=== PATIENT | male | born 1950 | race Caucasian/White ===

== ENCOUNTER 2017-10-03 20:03 | Emergency (ER) | payer MEDICARE ==
[2017-10-03] MEDS ORDERED: ASPIRIN PO ONE (20:21)
[2017-10-03] MEDS ORDERED: CATAPRES PO ONE (20:33)
[2017-10-03] MEDS ORDERED: NACL 0.9% 1000 ML 1,000 ML IV ONE (20:33)
[2017-10-03 21:02] LABS: Basophils % (Auto) 0.7 % (0.0-1.8); Eosinophils # (Auto) 0.6 K/mm3 (0.0-0.4); Eosinophils % (Auto) 10.8 % (0.0-4.3); Lymphocytes # (Auto) 1.9 K/mm3 (1.2-5.4); Lymphocytes % (Auto) 31.9 % (13.4-35.0); Mean Corpuscular HGB Conc 36 % (32-34); Mean Corpuscular Hemoglobin 34 pg (28-32); Mean Corpuscular Volume 94 fl (84-94); Monocytes # (Auto) 0.4 K/mm3 (0.0-0.8); Monocytes % (Auto) 7.1 % (0.0-7.3); Platelet Count 190 K/mm3 (140-440); Red Blood Count 4.69 M/mm3 (3.65-5.03)
[2017-10-03 21:08] LABS: Hematocrit 43.8 % (35.5-45.6); Hemoglobin 15.8 gm/dl (11.8-15.2)
[2017-10-03 21:19] LABS: BUN/Creatinine Ratio 11; Blood Urea Nitrogen 9 mg/dL (9-20); Hemolysis Index 7
--- NOTE | 2017-10-03 22:10 | XRay Report ---
FINAL REPORT PROCEDURE: XR CHEST 1V AP TECHNIQUE: Chest radiograph anteroposterior view. CPT 36282 HISTORY: cough COMPARISON: No prior studies are available for comparison. FINDINGS: Heart: Normal. Mediastinum/Vessels: Normal. Lungs/Pleural space: There are no infiltrates, effusions or pneumothoraces. Bony thorax: No acute osseous abnormality. Life support devices: None. IMPRESSION: No acute cardiopulmonary abnormality.
--- NOTE | 2017-10-03 22:30 | Emergency Department Report ---
ED General Adult HPI - General Chief complaint: Dizziness Stated complaint: HIGH BP Time Seen by Provider: 10/03/17 20:28 Source: patient, EMS Mode of arrival: Stretcher Limitations: Language Barrier - History of Present Illness Initial comments: Patient is a 67-year-old. Ms. castillo who is presenting with 1 week of cough and cold and congestion. Patient states cough is dry and nonproductive. Patient states he has taken a few amoxicillin that the family had passed was not feeling much better. Patient states that he's felt some mild dizziness and generalized weakness for the past several days. Patient is denying any chest pain or fevers chills nausea vomiting diarrhea. Patient has a history of high blood pressure was taken off his blood pressure medicines partially 2 months ago according to the patient's daughter. Severity scale (0 -10): 0 - Related Data Previous Rx's Medication Instructions Recorded Last Taken Type ALBUTEROL Inhaler [ProAir HFA 2 puff IH QID PRN #1 inhalation 10/03/17 Unknown Rx Inhaler] Azithromycin [Zithromax Z-TOÑO] 250 mg PO DAILY #6 tablet 10/03/17 Unknown Rx Benzonatate [Tessalon Perles] 100 mg PO Q8HR #10 capsule 10/03/17 Unknown Rx predniSONE [Deltasone] 20 mg PO QDAY #5 tab 10/03/17 Unknown Rx Allergies Allergy/AdvReac Type Severity Reaction Status Date / Time No Known Allergies Allergy Verified 10/03/17 20:21 ED Review of Systems ROS: Stated complaint: HIGH BP Other details as noted in HPI Comment: All other systems reviewed and negative ED Past Medical Hx - Past Medical History Previous Medical History?: Yes Additional medical history: hep C - Social History Smoking Status: Never Smoker Substance Use Type: Alcohol - Medications Home Medications: Home Medications Medication Instructions Recorded Confirmed Last Taken Type ALBUTEROL Inhaler [ProAir HFA 2 puff IH QID PRN #1 inhalation 10/03/17 Unknown Rx Inhaler] Azithromycin [Zithromax Z-TOÑO] 250 mg PO DAILY #6 tablet 10/03/17 Unknown Rx Benzonatate [Tessalon Perles] 100 mg PO Q8HR #10 capsule 10/03/17 Unknown Rx predniSONE [Deltasone] 20 mg PO QDAY #5 tab 10/03/17 Unknown Rx ED Physical Exam - General Limitations: Language Barrier General appearance: alert, in no apparent distress - Head Head exam: Present: atraumatic, normocephalic - Eye Eye exam: Present: normal appearance - ENT ENT exam: Present: mucous membranes moist - Neck Neck exam: Present: normal inspection - Respiratory Respiratory exam: Present: normal lung sounds bilaterally. Absent: respiratory distress, wheezes, rales, rhonchi, chest wall tenderness, accessory muscle use, decreased breath sounds - Cardiovascular Cardiovascular Exam: Present: regular rate, normal rhythm, normal heart sounds. Absent: systolic murmur, diastolic murmur, rubs, gallop - GI/Abdominal GI/Abdominal exam: Present: soft, normal bowel sounds. Absent: distended, tenderness, guarding, rebound - Rectal Rectal exam: Present: deferred - Extremities Exam Extremities exam: Present: normal inspection - Back Exam Back exam: Present: normal inspection - Neurological Exam Neurological exam: Present: alert, oriented X3 - Psychiatric Psychiatric exam: Present: normal affect, normal mood - Skin Skin exam: Present: warm, dry, intact, normal color. Absent: rash ED Course Vital Signs 10/03/17 10/03/17 10/03/17 20:12 20:15 20:30 Pulse Rate 61 61 Respiratory 18 13 Rate Blood Pressure 184/103 193/94 Blood Pressure [Right] O2 Sat by Pulse 95 97 92 Oximetry 10/03/17 10/03/17 10/03/17 20:45 21:00 21:05 Pulse Rate 63 60 62 Respiratory 17 17 16 Rate Blood Pressure 193/94 189/91 189/91 Blood Pressure 189/91 [Right] O2 Sat by Pulse 96 90 98 Oximetry 10/03/17 10/03/17 10/03/17 21:06 21:15 21:45 Pulse Rate 61 60 Respiratory 16 16 19 Rate Blood Pressure 189/98 175/85 Blood Pressure [Right] O2 Sat by Pulse 98 92 92 Oximetry 10/03/17 22:00 Pulse Rate 67 Respiratory 23 Rate Blood Pressure 168/80 Blood Pressure [Right] O2 Sat by Pulse 92 Oximetry ED Medical Decision Making - Lab Data Result diagrams: 10/03/17 20:34 10/03/17 20:34 - Radiology Data Patient: LANCE ROLLINS MR#: [id number] : 1950 Acct:[id number] Age/Sex: 67 / M ADM Date: 10/03/17 Loc: ED Attending Dr: Ordering Physician: CINDA SERNA MD Date of Service: 10/03/17 Procedure(s): XR chest 1V ap Accession Number(s): [id number] cc: CINDA SERNA MD Fluoro Time In Minutes: FINAL REPORT PROCEDURE: XR CHEST 1V AP TECHNIQUE: Chest radiograph anteroposterior view. CPT 61213 HISTORY: cough COMPARISON: No prior studies are available for comparison. FINDINGS: Heart: Normal. Mediastinum/Vessels: Normal. Lungs/Pleural space: There are no infiltrates, effusions or pneumothoraces. Bony thorax: No acute osseous abnormality. Life support devices: None. IMPRESSION: No acute cardiopulmonary abnormality. - Medical Decision Making The patient's chest x-ray shows no acute process. Patient was negative for pneumonia. Patient most likely has a smoker's bronchitis and will be placed on meds. Patient blood pressure did decrease to 150 range systolic before he was discharged. She is instructed to follow with primary care physician regarding placing the patient back on medications. Patient is having no evidence of any end organ damage at this time. Critical care attestation.: If time is entered above; I have spent that time in minutes in the direct care of this critically ill patient, excluding procedure time. ED Disposition Clinical Impression: Hypertensive urgency Acute bronchitis Qualifiers: Bronchitis organism: unspecified organism Qualified Code(s): J20.9 - Acute bronchitis, unspecified Disposition: DC-01 TO HOME OR SELFCARE Is pt being admited?: No Does the pt Need Aspirin: No Condition: Stable Instructions: Acute Bronchitis (ED), Hypertension (ED) Referrals: PRIMARY CAREMD [Primary Care Provider] - 3-5 Days Time of Disposition: 22:30
[2017-10-03 23:11] VITALS: BP 137/73
== END 2017-10-03 22:53 | disposition home or self-care (01) ==
LOC: ED 20:03
DX: I10 Essential (primary) hypertension (principal); J20.9 Acute bronchitis, unspecified; R42 Dizziness and giddiness
CPT/HCPCS: 36415; 71045; 80048; 84484; 85025; 93005; 93010; 96360; 99285; J7030